=== PATIENT | female | born 1950 | race Caucasian/White ===

== ENCOUNTER 2021-11-28 14:00 | Outpatient (RCR) | payer OTHER, SELFPAY | END 2021-12-30 14:54 | disposition home or self-care (01) | LOC: HO.PT 14:00 | PROVIDERS: Visit Provider Orthopaedic Surgery | DX: M17.0 Bilateral primary osteoarthritis of knee (principal) | CPT/HCPCS: 97110; 97161 ==

== ENCOUNTER 2022-01-20 11:00 | Outpatient (RCR) | payer OTHER, SELFPAY ==
[2021-12-22 12:52] VITALS: BP 129/65; PULSE 78; O2SAT 98
== END 2022-02-25 15:20 ==
LOC: HO.PT 11:00
PROVIDERS: Visit Provider Orthopaedic Surgery
DX: Z96.651 Presence of right artificial knee joint (principal)
CPT/HCPCS: 97110; 97162; 97530

== ENCOUNTER 2022-04-10 13:00 | Outpatient (RCR) | payer OTHER, SELFPAY | END 2022-05-27 15:25 | disposition home or self-care (01) | LOC: HO.PT 13:00 | PROVIDERS: Visit Provider Orthopaedic Surgery | DX: Z96.652 Presence of left artificial knee joint (principal) | CPT/HCPCS: 97110; 97161; 97530 ==

== ENCOUNTER 2023-05-18 15:14 | Emergency (ER) | payer OTHER, SELFPAY ==
--- NOTE | ~2023-05-18 | XR_ITS ---
EXAMINATION: XR CHEST CLINICAL INFORMATION: Shortness of breath COMPARISON: None available. TECHNIQUE: 2 views of the chest were obtained. 1626 PM FINDINGS: No significant abnormality is noted involving the heart, lungs, mediastinum, bony thorax or soft tissues. XR/XR chest 2V IMPRESSION: No acute cardiopulmonary disease.
--- NOTE | ~2023-05-18 | CT_ITS ---
EXAMINATION: CT head/brain wo IV con CLINICAL INFORMATION: Reason for Exam Persistent Dizziness w/ elevated BP COMPARISON: None. TECHNIQUE: Contiguous axial imaging was performed from the skull base to vertex without intravenous contrast. Sagittal and coronal reformatted images were obtained. This CT examination was performed using dose optimization techniques as appropriate, variously including the following: * Automated exposure control * Adjustment of mA and/or kV according to patient size (this includes techniques or standardized protocols for targeted exams where dose is matched to indication/reason for exam; i.e. extremities or head) Use of iterative reconstruction technique DLP: 618.3 mGy-cm FINDINGS: No acute osseous or soft tissue abnormality. Severe degenerative changes of the temporomandibular joints. The mastoids are clear. Mild maxillary sinus mucosal thickening. There is no evidence of acute intracranial hemorrhage or territorial infarction. No abnormal mass effect or midline shift is seen. Mendoza to white matter differentiation is well preserved. No extra-axial fluid collections are identified. No hydrocephalus. No significant volume loss. There is no abnormal attenuation within the brain parenchyma. Fat density is noted in the region of the torcula herophili, a normal anatomic variant. CT/CT head/brain wo IV con IMPRESSION: No acute intracranial abnormality including hemorrhage, mass effect, hydrocephalus, or acute territorial edematous infarction.
[2023-05-18 15:37] VITALS: BP 180/90; PULSE 69; RESP 20; TEMP 37; O2SAT 97; BMI 26.6
--- NOTE | 2023-05-18 15:38 | ED_ITS ---
HPI - General Adult General Chief complaint: Dizziness Stated complaint: dizzy, high blood pressure Time Seen by Provider: 05/18/23 23:36 Source: patient Mode of arrival: ambulatory History of Present Illness HPI narrative: 73-year-old female who reports dizziness, room spinning and also reports some chest tightness, the dizziness started at approximately 13:30, 1 hour prior to presentation and occurred while she was sitting at the computer. Patient denies any gait instability, denies any double vision or blurred vision or loss of vision. Patient states that she checked her blood pressure immediately afterwards and noted that it was 240/95 and she says that she checks it every once a while. Patient otherwise denies any diabetes or history of hypertension, she does have thyroid dysfunction. Patient currently denies any left upper extremity tingling. Patient does report recent return from flying to the [facility]. Related Data Allergies Allergy/AdvReac Type Severity Reaction Status Date / Time No Known Allergies Allergy Mild N/A Verified 05/18/23 15:37 Review of Systems 2 Review of Systems: Pertinent positives and negatives as stated in HPI [facility] Past Medical History Source: nursing notes reviewed Social History Social History Advance Directives: No Advance Directives Information Provided: No Physical Exam ED Vital Signs: Vital Signs - 24 hr 05/18/23 15:37 05/18/23 23:47 05/19/23 00:07 Temperature 98.6 F 97.8 F Pulse Rate 69 62 59 Respiratory Rate 20 12 Blood Pressure 180/90 H 178/76 H 189/79 H Pulse Oximetry 97 100 Oxygen Delivery Method Room Air Room Air 05/19/23 00:08 05/19/23 00:08 Temperature Pulse Rate 64 65 Respiratory Rate Blood Pressure 170/77 H 175/79 H Pulse Oximetry Oxygen Delivery Method BMI result Body Mass Index 26.6 VITAL SIGNS: Reviewed. GENERAL: Well developed, well nourished, in no acute distress. HEAD: Normocephalic/atraumatic EYES: PERRLA, EOMI EARS: Ext canals without abnormality NOSE: Nares patent bilateral OROPHARYNX: no oral lesions noted, posterior pharynx clear NECK: Supple, no adenopathy LUNGS: Normal breath sounds. No adventitious sounds or accessory muscle use. SpO2<97> CARDIOVASCULAR: Regular rate and rhythm without noted murmurs, no JVD or lower extremity edema. ABDOMEN: Soft, non-tender, non-distended with bowel sounds. MUSCULOSKELETAL: No tenderness, deformities, or effusions noted on gross inspection. EXTREMITIES: No cyanosis, clubbing or edema. SKIN: Inspection of the skin reveals no rashes NEUROLOGIC: Alert and oriented x 4. Strength and sensation to light touch were grossly intact x 4, no facial asymmetry, no pronator drift, cranial nerves 2-12 are grossly intact. No noted gait instability or truncal ataxia Course Course Course Narrative: RME:?73 year old female presents w/ dizziness and shortness of breath x today. Dizziness described as feeling like she is going to pass out or lose her balance. No hx of veritgo. Has felt increasingly more short of breath over the last 3 days. Denies sick contacts. Endorses chest pain, worse when lying down. Reports being hypertensive to 240/95 at home. She does not take bp medications. States she is usually hypotensive. Denies blurred vision, vision changes, headache. Plan for labs, ekg, cxr, serology Full HPI, ROS and PE to be performed by the primary ED provider. Medical Decision Making Medical Decision Making MDM Narrative: 73-year-old female with history and clinical presentation, DDX: Hypertensive neural affect, TSH dysfunction, viral illness I reviewed all investigations and hematologic indices are negative for leukocytosis or left shift, there is no anemia or thrombocytopenia. Coagulation studies are grossly within normal limits. Chemistry indices do not demonstrate an GALI and there is no electrolyte or liver enzyme abnormalities, high sensitivity troponin is undetectable and there are no acute changes on EKG. TSH is noted to be low suggesting that the dose of thyroid medication may be too aggressive and also may be contributing to patient's difficulty with blood pressure. Viral testing is negative for flu/RSV/COVID. CT scan negative for intracranial hemorrhage or mass effect and otherwise my interpretation is in agreement with radiology's impression. Chest x-ray is negative for infiltrate or venous congestion otherwise my interpretation is in agreement with radiology's impression. I provided the patient with 12.5 mg of meclizine, the D-dimer is negligible and does not push me to further CT scan to rule out occult PE. My interpretation is that patient likely has suffered from vertigo either from viral illness or from episode of elevated blood pressure, she also has a low TSH and I have recommended to this patient she needs to follow-up with the primary care doctor by calling the office in the morning. Differential Diagnosis Differential Diagnoses: The differential diagnosis associated with the presentation includes Please see the discussion above Admission/Observation Consideration of admission/observation: Escalation of care including admission/observation considered Please see the discussion above Lab Data MDM Lab Attestation statement: I reviewed the patient's lab results. Please see the discussion above 05/18/23 15:56 05/18/23 15:56 Labs: Lab Results 05/18/23 Range/Units 15:56 WBC 7.0 (4.8-10.8) X10*3/uL RBC 4.20 (4.20-5.50) X10*6/uL Hgb 13.3 (12.0-16.0) g/dl Hct 39.9 (37.0-47.0) % MCV 95.0 (80.0-98.0) fL MCH 31.7 (27.0-33.0) pg MCHC 33.3 (31.0-35.0) g/dl RDW 12.5 (11.0-16.0) % Plt Count 222 (160-400) X10*3/uL MPV 9.8 (9.4-12.3) fL Immature Gran % (Auto) 0.3 (0.0-0.4) % Neut % (Auto) 46.5 (45-73) % Lymph % (Auto) 41.6 H (20-40) % [place] % (Auto) 6.9 (2-11) % Eos % (Auto) 4.4 H (0-4) % Baso % (Auto) 0.3 (0-2) % Lymph # (Auto) 2.9 (1.2-4.9) X10*3/uL [place] # (Auto) 0.5 (0.1-1.2) X10*3/uL Eos # (Auto) 0.3 (0.0-0.4) X10*3/uL Baso # (Auto) 0.0 (0.0-0.2) X10*3/uL Abs Immat Gran (auto) 0.02 (0.00-0.03) X10*3/uL Absolute Neuts (auto) 3.2 (2.0-8.3) x10*3/uL Absolute Nucleated RBC 0.000 (0.0-0.012) X10*3/uL Nucleated RBC % (auto) 0.0 (0.0-0.2) /100WBC PT 10.8 L (11.1-13.3) SEC INR 0.9 (0.9-1.1) D-Dimer High Sensitivty 165 NG/ML Sodium 144 (135-145) mmol/L Potassium 4.0 (3.3-5.1) mmol/L Chloride 108 (96-108) mmol/L Carbon Dioxide 28 (22-29) mmol/L Anion Gap 12 (12-20) BUN 13 (9-16) mg/dL Creatinine 0.69 (0.5-1.4) mg/dL Estim Creat Clear Calc 70.9 Estimated GFR > 60 Random Glucose 96 (60-115) mg/dL Calcium 9.6 (8.4-10.2) mg/dL Magnesium 2.0 (1.6-2.6) mg/dL Troponin I High Sens < 2.7 (<3.5-17.0) ng/L TSH 0.31 L (0.32-4.0) uIU/mL Influenza Type A (PCR) NEGATIVE (Negative) Influenza Type B (PCR) NEGATIVE (Negative) RSV RNA Qual (PCR) NEGATIVE (Negative) SARS-CoV-2 RNA (RT-PCR) NEGATIVE (Negative) Independent Interpretation I performed an independent interpretation of an: EKG Interpretation: Normal sinus rhythm, HR-61, no STEMI, MD/QRS/QTC is within normal limits. Radiology Impression Discussion of test interpretation with radiology: I have reviewed the radiologist's reading. Radiologist Impression: Please see the discussion above Critical Care Time Critical Care Time Critical Care Time: Yes Total Critical Care Time: 30 Attestation: I personally attest to this time spent taking care of the patient. Discharge Plan Discharge Clinical Impression: Vertigo, Low TSH level, Hypertensive crisis Patient Disposition: Home, Self-Care Instructions: Vertigo (ED), Hypertensive Crisis (ED) Additional Instructions: 1. Your TSH level was 0.31, I recommend that you discuss this with your primary care doctor at your earliest convenience. This may contribute to your blood pressure being elevated. 2. Please call the office of your primary care doctor in the morning and discuss the possibility of being started on blood pressure medication. Return to the ER for any acute or worsening symptoms.
--- NOTE | 2023-05-18 15:39 | ECG_ITS ---
Test Reason : dizziness Blood Pressure : / mmHG Vent. Rate : 061 BPM Atrial Rate : 061 BPM P-R Int : 204 ms QRS Dur : 082 ms QT Int : 442 ms P-R-T Axes : 052 -13 061 degrees QTc Int : 444 ms Normal sinus rhythm Normal ECG When compared with ECG of 02-JUL-2008 16:49, No significant change was found Referred By: Nidia Mike Electronically Signed By:OLENA MORROW
[2023-05-18 16:06] LABS: MANUAL DIFF FLAG NO
[2023-05-18 16:13] LABS: INTERNATIONAL NORM RATIO 0.9 (0.9-1.1); Prothrombin Time 10.8 SEC (11.1-13.3)
[2023-05-18 16:22] LABS: Anion Gap 12 (12-20); Blood Urea Nitrogen 13 mg/dL (9-16); Calcium 9.6 mg/dL (8.4-10.2); Carbon Dioxide 28 mmol/L (22-29); Chloride 108 mmol/L (96-108); Creatinine Clr Calc Pharmacy 70.9; Estimated Glomerular Filt Rate > 60; Glucose Random 96 mg/dL (60-115); Sodium 144 mmol/L (135-145)
[2023-05-18 16:29] LABS: Troponin-I High Sensitivity < 2.7 ng/L (<3.5-17.0)
[2023-05-18 16:49] LABS: Basophils Percent Auto 0.3 % (0-2); Eosinophils Absolute Auto 0.3 X10*3/uL (0.0-0.4); Eosinophils Percent Auto 4.4 % (0-4); Hematocrit 39.9 % (37.0-47.0); Hemoglobin 13.3 g/dl (12.0-16.0); Imm Gran Abs Auto 0.02 X10*3/uL (0.00-0.03); Imm Gran Pct Auto 0.3 % (0.0-0.4); Lymphocytes Absolute Auto 2.9 X10*3/uL (1.2-4.9); Lymphocytes Percent Auto 41.6 % (20-40); Mean Corpuscular HGB Conc 33.3 g/dl (31.0-35.0); Mean Corpuscular Hemoglobin 31.7 pg (27.0-33.0); Mean Platelet Volume 9.8 fL (9.4-12.3); Monocytes Absolute Auto 0.5 X10*3/uL (0.1-1.2); Monocytes Percent Auto 6.9 % (2-11); Neutrophils Absolute Auto 3.2 x10*3/uL (2.0-8.3); Neutrophils Percent Auto 46.5 % (45-73); Platelet Count 222 X10*3/uL (160-400); Red Cell Distribution Width 12.5 % (11.0-16.0)
[2023-05-18 16:53] LABS: Influenza A PCR NEGATIVE (Negative); Influenza B PCR NEGATIVE (Negative); Resp Syncy Virus RNA Qual PCR NEGATIVE (Negative); SARS COV2 PCR INHOUSE NEGATIVE (Negative)
[2023-05-18 23:47] VITALS: BP 178/76; PULSE 62; RESP 12; TEMP 36.6; O2SAT 100
[2023-05-19 00:07] VITALS: BP 189/79; PULSE 59
[2023-05-19 00:08] VITALS: BP 170/77; BP 175/79; PULSE 64; PULSE 65
[2023-05-19 00:42] LABS: Thyroid Stimulating Hormone 0.31 uIU/mL (0.32-4.0)
[2023-05-19 01:11] LABS: D Dimer High Sensitivity 165 NG/ML
[2023-05-19] MEDS: hydroCHLOROthiazide 12.5 MG TABLET PO (02:06)
[2023-05-19] MEDS: Meclizine HCl 12.5 MG TABLET PO (02:07)
[2023-05-19 02:08] VITALS: BP 144/83; PULSE 69; RESP 16; O2SAT 97
== END 2023-05-19 02:23 | disposition home or self-care (01) ==
PROVIDERS: Physician Assistant Medical; Emergency Provider Student in an Organized Health Care Education/Training Program
DX: R42 Dizziness and giddiness (principal); I16.0 Hypertensive urgency; R79.89 Other specified abnormal findings of blood chemistry; Z20.822 Contact with and (suspected) exposure to COVID-19; Z20.828 Contact with and (suspected) exposure to other viral communicable diseases; Z79.899 Other long term (current) drug therapy
CPT/HCPCS: 0241U; 36415; 70450; 71046; 80048; 83735; 84443; 84484; 85025; 85379; 85610; 93005; 99284

== ENCOUNTER → 2023-05-18 15:39 | Outpatient (BNV) | payer OTHER, SELFPAY | PROVIDERS: Emergency Provider Student in an Organized Health Care Education/Training Program; Visit Provider Internal Medicine | DX: R42 Dizziness and giddiness (principal) | CPT/HCPCS: 93010 ==